=== PATIENT | female | born 1930 | race American Indian/Alaskan Native ===

== ENCOUNTER 2018-12-05 07:14 | Emergency (ER) | payer MEDICARE, OTHER ==
--- NOTE | 2018-12-05 08:02 | Emergency Department Report ---
ED General Adult HPI - General Chief complaint: Extremity Injury, Lower Stated complaint: FALL/LEG PAIN Time Seen by Provider: 12/05/18 07:30 Source: patient, family Mode of arrival: Wheelchair Limitations: No Limitations - History of Present Illness Initial comments: 88-year-old female relates two mechanical falls. One was about a month ago with evaluation in [facility]. She states that she had x-rays and complains of pain in the buttock area is at the time of that injury. Should the next 4 was 2 weeks ago. She states that she injured her right leg at that time but did not go to the doctor. She complains of mild pain in the heel area. She is comes today basically because her right leg is swollen. In actuality both her legs are swollen but the right is more so compared to the left. She reports she had blood work a month ago and nothing specific was found. She is not admitted to a facility. -: month(s) Location: right (heel mildly sore chief complaint is swelling), lower extremity Associated Symptoms: denies other symptoms (able to ambulate) - Related Data Home Medications Medication Instructions Recorded Confirmed Last Taken amLODIPine [Norvasc] 5 mg PO DAILY 12/05/18 12/05/18 Unknown Previous Rx's Medication Instructions Recorded Last Taken Type Losartan/Hydrochlorothiazide 1 each PO DAILY #30 tablet 12/05/18 Unknown Rx [Losartan-Hctz 50-12.5 mg Tab] Allergies Allergy/AdvReac Type Severity Reaction Status Date / Time No Known Allergies Allergy Unverified 12/05/18 07:17 ED Review of Systems ROS: Stated complaint: FALL/LEG PAIN Other details as noted in HPI Constitutional: denies: chills, fever Eyes: denies: eye pain, eye discharge, vision change ENT: denies: ear pain, throat pain Respiratory: denies: cough, shortness of breath, wheezing Cardiovascular: denies: chest pain, palpitations Endocrine: no symptoms reported Gastrointestinal: denies: abdominal pain, nausea, diarrhea Genitourinary: denies: urgency, dysuria, discharge Musculoskeletal: as per HPI. denies: back pain, joint swelling, arthralgia Skin: denies: rash, lesions Neurological: denies: headache, weakness, paresthesias Psychiatric: denies: anxiety, depression Hematological/Lymphatic: denies: easy bleeding, easy bruising ED Past Medical Hx - Past Medical History Hx Hypertension: Yes Hx GERD: Yes Additional medical history: HEART MURMUR - Surgical History Past Surgical History?: Yes Additional Surgical History: REMOVAL OF PARTIAL PART LARGE INTESTINE - Social History Smoking Status: Never Smoker Substance Use Type: None - Medications Home Medications: Home Medications Medication Instructions Recorded Confirmed Last Taken Type Losartan/Hydrochlorothiazide 1 each PO DAILY #30 tablet 12/05/18 Unknown Rx [Losartan-Hctz 50-12.5 mg Tab] amLODIPine [Norvasc] 5 mg PO DAILY 12/05/18 12/05/18 Unknown History ED Physical Exam - General Limitations: No Limitations General appearance: alert, in no apparent distress - Head Head exam: Present: atraumatic, normocephalic - Eye Eye exam: Present: normal appearance. Absent: scleral icterus - ENT ENT exam: Present: mucous membranes moist - Neck Neck exam: Present: normal inspection - Respiratory Respiratory exam: Present: normal lung sounds bilaterally. Absent: respiratory distress - Cardiovascular Cardiovascular Exam: Present: regular rate, normal rhythm. Absent: systolic murmur, diastolic murmur, rubs, gallop - GI/Abdominal GI/Abdominal exam: Present: soft, normal bowel sounds. Absent: distended, tenderness, guarding, rebound - Extremities Exam Extremities exam: Present: full ROM, normal capillary refill, other (bilateral pretibial edema right greater than left). Absent: joint swelling, calf tenderne ss - Back Exam Back exam: Present: normal inspection - Neurological Exam Neurological exam: Present: alert, oriented X3, CN II-XII intact. Absent: motor sensory deficit - Psychiatric Psychiatric exam: Present: normal affect, normal mood - Skin Skin exam: Present: warm, dry, intact, normal color. Absent: rash ED Course Vital Signs 12/05/18 12/05/18 12/05/18 07:22 09:09 09:11 Temperature 98.1 F 97.5 F L Pulse Rate 65 57 L Respiratory 20 15 15 Rate Blood Pressure 155/69 Blood Pressure 164/89 [Right] O2 Sat by Pulse 99 98 Oximetry - Reevaluation(s) Reevaluation #1: Patient has electrocardiographic evidence of previous cardiac stents. She has leg edema perhaps secondary to right-sided failure. She has hypertension. Will be placed on an CANDY inhibitor analyte diuretic. She is referred to cardiology and primary care. 12/05/18 13:21 ED Medical Decision Making - Lab Data Result diagrams: 12/05/18 08:09 12/05/18 08:09 Laboratory Results - last 24 hr 12/05/18 12/05/18 08:09 08:09 WBC 2.2 L RBC 4.17 Hgb 12.8 Hct 39.8 MCV 95 MCH 31 MCHC 32 RDW 14.9 Plt Count 235 Add Manual Diff Complete Total Counted 100 Seg Neuts % (Manual) 55.0 Band Neutrophils % 0 Lymphocytes % (Manual) 33.0 Reactive Lymphs % (Man) 0 Monocytes % (Manual) 9.0 H Eosinophils % (Manual) 1.0 Basophils % (Manual) 1.0 Metamyelocytes % 1.0 Myelocytes % 0 Promyelocytes % 0 Blast Cells % 0 Nucleated RBC % Not Reportable Seg Neutrophils # Man 1.2 L Band Neutrophils # 0.0 Lymphocytes # (Manual) 0.7 L Abs React Lymphs (Man) 0.0 Monocytes # (Manual) 0.2 Eosinophils # (Manual) 0.0 Basophils # (Manual) 0.0 Metamyelocytes # 0.0 Myelocytes # 0.0 Promyelocytes # 0.0 Blast Cells # 0.0 WBC Morphology Not Reportable Hypersegmented Neuts Not Reportable Hyposegmented Neuts Not Reportable Hypogranular Neuts Not Reportable Smudge Cells Not Reportable Toxic Granulation Not Reportable Toxic Vacuolation Not Reportable Dohle Bodies Not Reportable Pelger-Huet Anomaly Not Reportable Lizz Rods Not Reportable Platelet Estimate Consistent w auto Clumped Platelets Not Reportable Plt Clumps, EDTA Not Reportable Large Platelets Rare Giant Platelets Not Reportable Platelet Satelliting Not Reportable Plt Morphology Comment Not Reportable RBC Morphology Not Reportable Dimorphic RBCs Not Reportable Polychromasia Not Reportable Hypochromasia Not Reportable Poikilocytosis Few Anisocytosis Few Microcytosis Not Reportable Macrocytosis Not Reportable Spherocytes Not Reportable Pappenheimer Bodies Not Reportable Sickle Cells Not Reportable Target Cells Not Reportable Tear Drop Cells Not Reportable Ovalocytes Rare Helmet Cells Not Reportable Adhikari-Ord Bodies Not Reportable [place] Rings Not Reportable Flory Cells Not Reportable Bite Cells Not Reportable Crenated Cell Not Reportable Elliptocytes Not Reportable Acanthocytes (Spur) Not Reportable Rouleaux Not Reportable Hemoglobin C Crystals Not Reportable Schistocytes Not Reportable Malaria parasites Not Reportable Orion Bodies Not Reportable Hem Pathologist Commnt No Sodium 143 Potassium 4.7 Chloride 103.4 Carbon Dioxide 34 H Anion Gap 10 BUN 21 H Creatinine 0.5 L Estimated GFR > 60 BUN/Creatinine Ratio 42 Glucose 83 Calcium 9.0 Total Bilirubin 0.40 Direct Bilirubin < 0.2 Indirect Bilirubin 0.2 AST 17 ALT 10 Alkaline Phosphatase 147 H Total Protein 6.4 Albumin 3.5 L Albumin/Globulin Ratio 1.2 - EKG Data -: EKG Interpreted by Me EKG shows normal: sinus rhythm Rate: normal - EKG Data Interpretation: no acute changes, other (H ear 6:00 QS in V2 and V3/4 consistent with old anterior ) - Radiology Data Radiology results: report reviewed (x-ray Doppler exam were negative) Critical care attestation.: If time is entered above; I have spent that time in minutes in the direct care of this critically ill patient, excluding procedure time. ED Disposition Clinical Impression: Contusion, foot Qualifiers: Encounter type: initial encounter Laterality: right Qualified Code(s): S90.31XA - Contusion of right foot, initial encounter Cardiomyopathy Qualifiers: Cardiomyopathy type: unspecified Qualified Code(s): I42.9 - Cardiomyopathy, unspecified Disposition: DC-01 TO HOME OR SELFCARE Is pt being admited?: No Does the pt Need Aspirin: No Condition: Stable Instructions: Hypertension (ED), Leg Edema (ED), Heart Failure (ED), Contusion in Adults (ED) Additional Instructions: Return to emergency department any acute change or problem. Rx for high blood p ressure and swelling. Follow up with radio program director/primary care provider. Prescriptions: Losartan/Hydrochlorothiazide [Losartan-Hctz 50-12.5 mg Tab] 1 each PO DAILY #30 tablet Referrals: KAYLA SOLANO MD [Primary Care Provider] - 3-5 Days MELQUIADES WOODWARD MD [Staff Physician] - 3-5 Days LEO PULIDO MD [Staff Physician] - 3-5 Days Time of Disposition: 13:23
[2018-12-05 08:44] LABS: Hematocrit 39.8 % (30.3-42.9); Hemoglobin 12.8 gm/dl (10.1-14.3); Mean Corpuscular HGB Conc 32 % (30-34); Mean Corpuscular Volume 95 fl (79-97); Platelet Count 235 K/mm3 (140-440); Red Blood Count 4.17 M/mm3 (3.65-5.03); Red Cell Distribution Width 14.9 % (13.2-15.2)
[2018-12-05 08:52] LABS: Alanine Aminotransferase 10 units/L (7-56); Albumin 3.5 g/dL (3.9-5); BUN/Creatinine Ratio 42; Blood Urea Nitrogen 21 mg/dL (7-17); Hemolysis Index 7
[2018-12-05 08:53] LABS: Bilirubin,Direct < 0.2 mg/dL (0-0.2)
--- NOTE | 2018-12-05 09:01 | Vascular Lab Report ---
DUPLEX DOPPLER LOWER EXTREMITY VEINS, RIGHT INDICATION / CLINICAL INFORMATION: swelling pain. TECHNIQUE: Duplex doppler imaging was performed through the veins of the right lower extremity using venous comp ression and other maneuvers. COMPARISON: None available. FINDINGS: COMMON FEMORAL VEIN: Negative. FEMORAL VEIN: Negative. POPLITEAL VEIN: Negative. CALF VEINS: Negative. ADDITIONAL FINDINGS: None. IMPRESSION: 1. No sonographic evidence for DVT in the right lower extremity. Signer Name: Junior Young MD Signed: 12/05/2018 8:57 AM Workstation Name: [id number]
--- NOTE | 2018-12-05 09:27 | XRay Report ---
RIGHT FOOT 3 VIEWS INDICATION: swelling, pain, fall. COMPARISON: No relevant prior imaging study available. FINDINGS: There is diffuse, subjective osteopenia. Moderate osteoarthrosis changes are noted throughout the master t. Given these limitations, no acute, displaced fracture or dislocation is seen. There is mild diffuse soft tissue swelling in the forefoot. No soft tissue gas or foreign bodies. There is mild calcaneal enthesopathy. IMPRESSION: 1. Diffuse soft tissue swelling in the forefoot. No displaced fracture is identified. Signer Name: Jed Rome MD Signed: 12/05/2018 9:22 AM Workstation Name: [id number]
[2018-12-05 09:45] LABS: Total Cells Counted 100
[2018-12-05 09:46] LABS: Anisocytosis Few; Large Platelets Rare; Ovalocytes Rare; Platelet Estimate Consistent w Auto; Poikilocytosis Few
--- NOTE | 2018-12-05 13:09 | XRay Report ---
CHEST 1 VIEW INDICATION: hypertension. COMPARISON: None. FINDINGS: Support devices: None. Heart: Mildly enlarged Lungs/Pleura: Fullness in the right hilum may be due to prominent pulmonary vasculature. No consolida tion is seen. Blunting at the right costophrenic angle may be due to small effusion or pleural thicke eulalia. IMPRESSION: 1. Fullness of the right hilum may be due to prominent pulmonary vasculature. Does this patient have clinical findings to suggest pulmonary arterial hypertension Interval PA and lateral radiographic fol low-up is recommended in the absence of priors showing stability. 2. Blunting at the right costophrenic angle, pleural thickening versus tiny effusion. 3. Enlargement of the cardiac silhouette. Signer Name: Jed Rome MD Signed: 12/05/2018 1:05 PM Workstation Name: [id number]
[2018-12-05 13:56] VITALS: BP 158/77
== END 2018-12-05 13:58 | disposition home or self-care (01) ==
LOC: EDBD → ED 07:14
DX: S90.31XA Contusion of right foot, initial encounter (principal); I42.9 Cardiomyopathy, unspecified; I10 Essential (primary) hypertension; K21.9 Gastro-esophageal reflux disease without esophagitis; Z98.890 Other specified postprocedural states; W19.XXXA Unspecified fall, initial encounter; Y93.89 Activity, other specified; Y92.89 Other specified places as the place of occurrence of the external cause; Y99.8 Other external cause status
CPT/HCPCS: 36415; 71045; 80048; 80076; 85007; 85025; 93005; 93010

== ENCOUNTER 2019-04-06 10:23 | Emergency (ER) | payer MEDICARE, OTHER ==
--- NOTE | 2019-04-06 13:32 | Emergency Department Report ---
ED Abdominal Pain HPI - General Chief Complaint: Abdominal Pain Stated Complaint: N/FLU SYM/WEAK Source: patient Mode of arrival: Wheelchair Limitations: No Limitations - History of Present Illness Initial Comments: This is an 89-year-old female with a past PMH of GERD and Hypertension. She presents to the ER today complaining of abdominal pain 3 weeks along with decreased appetite urinary pressure and abdominal distention. She denies vomiting she denies diarrhea no fever. MD Complaint: abdominal pain -: week(s) (3) Location: diffuse Radiation: none Migration to: no migration Consistency: constant Improves With: nothing Worsens With: nothing Associated Symptoms: chills, dysuria. denies: nausea, vomiting, diarrhea, fever, constipation - Related Data Home Medications Medication Instructions Recorded Confirmed Last Taken amLODIPine [Norvasc] 5 mg PO DAILY 12/05/18 12/05/18 Unknown Previous Rx's Medication Instructions Recorded Last Taken Type Losartan/Hydrochlorothiazide 1 each PO DAILY #30 tablet 12/05/18 Unknown Rx [Losartan-Hctz 50-12.5 mg Tab] bisacodyL [Dulcolax] 10 mg PO DAILY PRN #10 tab 04/06/19 Unknown Rx cephALEXin [Keflex] 500 mg PO Q12HR 7 Days #14 cap 04/06/19 Unknown Rx Allergies Allergy/AdvReac Type Severity Reaction Status Date / Time No Known Allergies Allergy Unverified 12/05/18 07:17 ED Review of Systems ROS: Stated complaint: N/FLU SYM/WEAK Other details as noted in HPI Comment: All other systems reviewed and negative ENT: denies: ear pain Respiratory: denies: cough Cardiovascular: denies: chest pain, palpitations, dyspnea on exertion Gastrointestinal: abdominal pain. denies: diarrhea, constipation, hematemesis, hematochezia Genitourinary: dysuria Musculoskeletal: denies: back pain Skin: denies: rash Neurological: denies: headache, weakness Psychiatric: denies: anxiety ED Past Medical Hx - Past Medical History Previous Medical History?: Yes Hx Hypertension: Yes Hx GERD: Yes Additional medical history: HEART MURMUR - Surgical History Past Surgical History?: Yes Additional Surgical History: REMOVAL OF PARTIAL PART LARGE INTESTINE - Social History Smoking Status: Never Smoker Substance Use Type: None - Medications Home Medications: Home Medications Medication Instructions Recorded Confirmed Last Taken Type Losartan/Hydrochlorothiazide 1 each PO DAILY #30 tablet 12/05/18 Unknown Rx [Losartan-Hctz 50-12.5 mg Tab] amLODIPine [Norvasc] 5 mg PO DAILY 12/05/18 12/05/18 Unknown History bisacodyL [Dulcolax] 10 mg PO DAILY PRN #10 tab 04/06/19 Unknown Rx cephALEXin [Keflex] 500 mg PO Q12HR 7 Days #14 cap 04/06/19 Unknown Rx ED Physical Exam - General Limitations: No Limitations General appearance: alert, in no apparent distress - Head Head exam: Present: atraumatic - Eye Eye exam: Present: normal appearance - ENT ENT exam: Present: normal exam - Neck Neck exam: Present: normal inspection - Respiratory Respiratory exam: Present: normal lung sounds bilaterally - Cardiovascular Cardiovascular Exam: Present: regular rate, normal heart sounds - GI/Abdominal GI/Abdominal exam: Present: soft, distended, hypoactive bowel sounds. Absent: tenderness, guarding, rebound, rigid - Extremities Exam Extremities exam: Present: normal inspection - Back Exam Back exam: Present: normal inspection - Neurological Exam Neurological exam: Present: alert, oriented X3 - Psychiatric Psychiatric exam: Present: normal affect - Skin Skin exam: Present: warm, dry, intact ED Course Vital Signs 04/06/19 16:00 Respiratory 18 Rate O2 Sat by Pulse 99 Oximetry ED Medical Decision Making - Lab Data Result diagrams: 04/06/19 14:41 04/06/19 14:41 Critical care attestation.: If time is entered above; I have spent that time in minutes in the direct care of this critically ill patient, excluding procedure time. ED Disposition Clinical Impression: UTI (urinary tract infection) Qualifiers: Urinary tract infection type: acute cystitis Hematuria presence: without hematuria Qualified Code(s): N30.00 - Acute cystitis without hematuria Constipation Qualifiers: Constipation type: unspecified constipation type Qualified Code(s): K59.00 - Constipation, unspecified Disposition: - TO HOME OR SELFCARE Is pt being admited?: No Does the pt Need Aspirin: No Condition: Stable Instructions: Abdominal Pain (ED) Additional Instructions: Increase your water intake to at least 6-8 glasses per day increase fiber in your diet increase fresh fruits and vegetables. Follow up with your doctor in one week or follow up at [facility] Prescriptions: bisacodyL [Dulcolax] 10 mg PO DAILY PRN #10 tab PRN Reason: Constipation cephALEXin [Keflex] 500 mg PO Q12HR 7 Days #14 cap Referrals: PRIMARY CAREMD [Primary Care Provider] - 3-5 Days JACOB EDWARDS MD [Staff Physician] - 3-5 Days Time of Disposition: 17:15
[2019-04-06 14:50] LABS: Hemoglobin 14.5 gm/dl (10.1-14.3); Mean Corpuscular HGB Conc 34 % (30-34); Mean Corpuscular Volume 93 fl (79-97); Platelet Count 166 K/mm3 (140-440); Red Blood Count 4.61 M/mm3 (3.65-5.03); Red Cell Distribution Width 13.8 % (13.2-15.2)
[2019-04-06 14:50] LABS: Bilirubin,Urine NEG (Negative); Blood,Urine NEG (Negative); Color,Urine Yellow (Yellow); Mucus,Urine FEW /HPF; Protein,Urine <15 mg/dL mg/dL (Negative)
[2019-04-06 15:22] LABS: Alanine Aminotransferase 8 units/L (7-56); Albumin 4.4 g/dL (3.9-5); BUN/Creatinine Ratio 22; Blood Urea Nitrogen 13 mg/dL (7-17); Calcium 9.7 mg/dL (8.4-10.2); Hemolysis Index 7
--- NOTE | 2019-04-06 16:44 | Cat Scan Report ---
CT ABDOMEN AND PELVIS WITH CONTRAST INDICATION: MAIN: abdominal pain and swelling STARTED THIS WEEK OMNIPAQUE 300 100ML . TECHNIQUE: Axial CT images were obtained through the abdomen and pelvis after 100 cc Omnipaque [address] scans at this location are performed using CT dose reduction for ALARA by means of automated exposure control. COMPARISON: None available. FINDINGS: LOWER CHEST: Moderate cardiomegaly. Linear bibasilar scar/atelectasis. LIVER: No significant abnormality. GALLBLADDER: No significant abnormality. BILE DUCTS: No significant abnormality. PANCREAS: No significant abnormality. SPLEEN: No significant abnormality. ADRENALS: No significant abnormality. RIGHT KIDNEY and URETER: Several simple right renal cysts, largest of which measures 3.7 cm. LEFT KIDNEY and URETER: 2 simple 1 cm left renal cyst. STOMACH and SMALL BOWEL: Postsurgical change distal small bowel. COLON: Moderate amount of stool characteristic for constipation. APPENDIX: Not visualized likely surgically absent. PERITONEUM: No free fluid. No free air. No fluid collection. LYMPH NODES: No significant adenopathy. AORTA and ARTERIES: Extensive vascular calcifications nonaneurysmal abdominal aorta. IVC and VEINS: No significant abnormality. URINARY BLADDER: No significant abnormality. REPRODUCTIVE ORGANS: Uterus surgically absent. ADDITIONAL FINDINGS: None. SKELETAL SYSTEM: Moderately advanced degenerative changes of lumbar spine. IMPRESSION: 1. Moderate constipation. No acute inflammatory process or bowel obstruction. 2. Cardiomegaly without CHF. Signer Name: Paul Worthy MD Signed: 04/06/2019 4:39 PM Workstation Name: [id number]
== END 2019-04-06 17:42 | disposition home or self-care (01) ==
LOC: ED 10:23
DX: N39.0 Urinary tract infection, site not specified (principal); K59.00 Constipation, unspecified; K21.9 Gastro-esophageal reflux disease without esophagitis; I10 Essential (primary) hypertension; Z98.890 Other specified postprocedural states; Z79.899 Other long term (current) drug therapy
CPT/HCPCS: 36415; 74177; 80053; 81001; 83690; 85027; 87086; 99284; Q9967

== ENCOUNTER 2020-06-22 10:13 | Outpatient (CLI) | payer MEDICARE ==
--- NOTE | 2020-06-22 12:04 | Mammography Report ---
DEXA BONE DENSITY SCAN INDICATION / CLINICAL INFORMATION: OSTEOPOROSIS. 89 years Female COMPARISON: None available. LUMBAR SPINE, L1-L4: - Bone mineral density (BMD) = 0.567 g/cm2. - T-score = -4.4 - Z-score = -2.1 Change (%) since most recent prior (if available): None available. LEFT HIP, TOTAL : - Bone mineral density (BMD) = 0.445 g/cm2. - T-score = -4.1 - Z-score = -2.0 Change (%) since most recent prior (if available): None available. IMPRESSION: 1. WHO Classification: Osteoporosis. Fracture Risk: High. BMD Reporting Guidelines (ISCD, 2015) BMD Reporting in Postmenopausal Women and in Men Age 50 and Older * T-scores are preferred. * The WHO densitometric classification is applicable. BMD Reporting in Females Prior to Menopause and in Males Younger Than Age 50 * Z-scores, not T-scores, are preferred. This is particularly important in children. * A Z-score of -2.0 or lower is defined as below the expected range for age, and a Z-score above -2. 0 is within the expected range for age. * Osteoporosis cannot be diagnosed in men under age 50 on the basis of BMD alone. * The WHO diagnostic criteria may be applied to women in the menopausal transition. http://www.iscd.org/official-positions/7844-krhh-wvgbxqsb-positions-adult/ Signer Name: Eriberto Gee MD Signed: 06/22/2020 11:49 AM Workstation Name: [id number]
== END 2020-06-22 10:14 | disposition home or self-care (01) ==
LOC: MAMMO 10:13
DX: Z13.820 Encounter for screening for osteoporosis (principal); M81.0 Age-related osteoporosis without current pathological fracture
CPT/HCPCS: 77080